=== PATIENT | male | born 1985 | race Caucasian/White ===

== ENCOUNTER 2020-09-14 14:15 | Emergency (ER) | payer BC, OTHER ==
[~2020-09-14] VITALS: Ht 185.5 cm; Wt 174.6 kg
--- NOTE | 2020-09-14 14:22 | ED General ---
General Chief Complaint: Respiratory Problems Stated Complaint: SINUS | DIARRHEA | VOMITING | COUGH | LIGHT-HEADED History of Present Illness Date Seen by Provider: September 14, 2020 Time Seen by Provider: 14:22 Initial Comments Patient presenting to the emergency department for evaluation of multiple symptoms including cough congestion fevers chills nausea vomiting diarrhea and bloody stools. The GI symptoms have been going on for 7 days including the bloody stools and the respiratory symptoms have been going on for 3 days. Patient says that the cough is nonproductive. The fevers is subjective and he has not had a measured fever. The emesis is nonbloody nonbilious. The diarrhea is watery and has been going on for 7 days. He says he has not been on any antibiotics recently and no chemotherapy or travel the blood in his stool is bright red. Patient denies having any medical problems or taking any medications on a regular basis but says that he does not have a primary care provider. He is in no obvious distress with normal vital signs other than hypertension noted. Allergies and Home Medications Allergies Coded Allergies: Fish Containing Products (Verified Allergy, Unknown, 09/14/20) Patient Home Medication List Home Medication List Reviewed: Yes Review of Systems Review of Systems Constitutional: fever EENTM: nose congestion Respiratory: cough Cardiovascular: no symptoms reported Gastrointestinal: diarrhea, nausea, vomiting Genitourinary: no symptoms reported Musculoskeletal: no symptoms reported Skin: no symptoms reported Psychiatric/Neurological: No Symptoms Reported All Other Systems Reviewed Negative Unless Noted: Yes Physical Exam Vital Signs Vital Signs - First Documented 09/14/20 14:18 Temp 36.6 Pulse 89 Resp 18 Pulse Ox 97 O2 Delivery Room Air Capillary Refill : Height, Weight, BMI Height: '" Weight: lbs. oz. kg; BMI Method: General Appearance: No Apparent Distress, WD/WN HEENT: PERRL/EOMI Neck: Supple Respiratory: Lungs Clear, No Respiratory Distress Cardiovascular: Regular Rate, Rhythm Gastrointestinal: Non Tender, Soft Rectal: Hemorrhoids (Approximate 2 x 2 centimeter hemorrhoid noted with no active bleeding noted. Internal exam revealed no internal hemorrhoids masses or bleeding) Back: Normal Inspection Extremity: Normal Capillary Refill Neurologic/Psychiatric: Alert, Oriented x3 Skin: Warm/Dry Progress/Results/Core Measures Suspected Sepsis SIRS Temperature: Pulse: Respiratory Rate: Laboratory Tests 09/14/20 14:55: White Blood Count 6.4 Blood Pressure / Mean: Laboratory Tests 09/14/20 14:55: Creatinine 0.80, INR Comment 0.9, Platelet Count 243, Total Bilirubin 1.0 Results/Orders Lab Results Laboratory Tests Test 09/14/20 14:55 09/14/20 15:10 09/14/20 15:15 Range/Units White Blood Count 6.4 4.3-11.0 10^3/uL Red Blood Count 5.15 4.35-5.85 10^6/uL Hemoglobin 16.1 13.3-17.7 G/DL Hematocrit 45 40-54 % Mean Corpuscular Volume 88 80-99 FL Mean Corpuscular Hemoglobin 31 25-34 PG Mean Corpuscular Hemoglobin Concent 36 32-36 G/DL Red Cell Distribution Width 12.5 10.0-14.5 % Platelet Count 243 130-400 10^3/uL Mean Platelet Volume 9.4 7.4-10.4 FL Immature Granulocyte % (Auto) 0 % Neutrophils (%) (Auto) 69 42-75 % Lymphocytes (%) (Auto) 21 12-44 % Monocytes (%) (Auto) 8 0-12 % Eosinophils (%) (Auto) 2 0-10 % Basophils (%) (Auto) 1 0-10 % Neutrophils # (Auto) 4.4 1.8-7.8 X 10^3 Lymphocytes # (Auto) 1.3 1.0-4.0 X 10^3 Monocytes # (Auto) 0.5 0.0-1.0 X 10^3 Eosinophils # (Auto) 0.1 0.0-0.3 10^3/uL Basophils # (Auto) 0.0 0.0-0.1 10^3/uL Immature Granulocyte # (Auto) 0.0 0.0-0.1 10^3/uL Percent Immature Platelet Fraction 1.7 0.0-7.6 % Prothrombin Time 12.8 12.2-14.7 SEC INR Comment 0.9 0.8-1.4 Activated Partial Thromboplast Time 27 24-35 SEC Sodium Level 134 L 135-145 MMOL/L Potassium Level 3.8 3.6-5.0 MMOL/L Chloride Level 94 L 98-107 MMOL/L Carbon Dioxide Level 26 21-32 MMOL/L Anion Gap 14 5-14 MMOL/L Blood Urea Nitrogen 10 7-18 MG/DL Creatinine 0.80 0.60-1.30 MG/DL Estimat Glomerular Filtration Rate > 60 BUN/Creatinine Ratio 13 Glucose Level 225 H 70-105 MG/DL Calcium Level 9.1 8.5-10.1 MG/DL Corrected Calcium 9.1 8.5-10.1 MG/DL Total Bilirubin 1.0 0.1-1.0 MG/DL Aspartate Amino Transf (AST/SGOT) 51 H 5-34 U/L Alanine Aminotransferase (ALT/SGPT) 67 H 0-55 U/L Alkaline Phosphatase 69 40-136 U/L Total Protein 7.9 6.4-8.2 GM/DL Albumin 4.0 3.2-4.5 GM/DL Lipase 24 8-78 U/L Urine Color YELLOW Urine Clarity SLIGHTLY CLOUDY Urine pH 6.0 5-[address] 1.025 H 1.016-1.022 Urine Protein NEGATIVE NEGATIVE Urine Glucose (UA) 1+ H NEGATIVE Urine Ketones NEGATIVE NEGATIVE Urine Nitrite NEGATIVE NEGATIVE Urine Bilirubin 1+ H NEGATIVE Urine Urobilinogen 1.0 < = 1.0 MG/DL Urine Leukocyte Esterase NEGATIVE NEGATIVE Urine RBC (Auto) NEGATIVE NEGATIVE Urine RBC NONE /HPF Urine WBC 0-2 /HPF Urine Squamous Epithelial Cells 2-5 /HPF Urine Crystals NONE /LPF Urine Bacteria FEW H /HPF Urine Casts NONE /LPF Urine Mucus LARGE H /LPF Urine Culture Indicated YES My Orders Orders - DEENA MANZANO DO Comprehensive Metabolic Panel (09/14/20 14:49) Cbc With Automated Diff (09/14/20 14:49) Lipase (09/14/20 14:49) Chest 1 View Ap/Pa Only (09/14/20 14:49) Ua Culture If Indicated (09/14/20 14:49) Partial Thromboplastin Time (09/14/20 14:49) Protime With Inr (09/14/20 14:49) Iv/Invasive Line Insertion .IV start (09/14/20 14:49) Coronavirus Sars-Cov-2 So 2018 (09/14/20 14:57) Urine Culture (09/14/20 15:10) Vital Signs/I&O 09/14/20 14:18 Temp 36.6 Pulse 89 Resp 18 B/P (MAP) Pulse Ox 97 O2 Delivery Room Air Capillary Refill : Progress Note : Progress Note Patient has negative work-up with no signs of anemia or dehydration. I highly suspect that the bleeding is from the larger external hemorrhoid noted. Chest x-ray shows no abnormality. I did reveal to him that he has transaminitis which would go along with a viral infection and that he also has hyperglycemia and hypertension that these are chronic conditions and that he really needs a primary care provider to further treat these conditions. No acute pathology going on today so I will recommend outpatient hemorrhoid treatment continue drink plenty of fluids and I will prescribe Zofran for support of his nausea and vomiting and Imodium for the diarrhea. Patient aware and agreeable with plan for discharge and verbalized understanding of the need for short-term follow-up and strict ED return precautions discussed clear his neck pain fevers vomiting or other general concerns. Departure Impression Primary Impression: External hemorrhoid Additional Impressions: Transaminitis Hyperglycemia Elevated blood pressure reading without diagnosis of hypertension URI (upper respiratory infection) Nausea & vomiting Diarrhea Disposition: 01 HOME, SELF-CARE Condition: Stable Departure-Patient Inst. Referrals: NO,LOCAL PHYSICIAN (PCP/Family) Primary Care Physician Patient Instructions: Hemorrhoids ED Scripts Hydrocortisone (Anusol-Hc) 30 Gm Cream..g. 30 GM RC BID for 14 Days, TUBE Prov: DEENA MANZANO DO 09/14/20 Ondansetron (Ondansetron Odt) 4 Mg Tab.rapdis 4 MG PO Q6H PRN for NAUSEA/VOMITING-1ST LINE, #14 TAB Prov: DEENA MANZANO DO 09/14/20 DEENA MANZANO DO September 14, 2020 14:22
[2020-09-14 15:01] LABS: BASOPHILS % (AUTO) 1 % (0-10); EOSINOPHILS # (AUTO) 0.1 10^3/uL (0.0-0.3); EOSINOPHILS % (AUTO) 2 % (0-10); HEMATOCRIT 45 % (40-54); HEMOGLOBIN 16.1 G/DL (13.3-17.7); LYMPHOCYTES # (AUTO) 1.3 X 10^3 (1.0-4.0); LYMPHOCYTES % (AUTO) 21 % (12-44); MEAN CORPUSCULAR HEMOGLOBIN 31 PG (25-34); MEAN CORPUSCULAR HGB CONC 36 G/DL (32-36); MEAN CORPUSCULAR VOLUME 88 FL (80-99); MEAN PLATELET VOLUME 9.4 FL (7.4-10.4); MONOCYTES # (AUTO) 0.5 X 10^3 (0.0-1.0); MONOCYTES % (AUTO) 8 % (0-12); NEUTROPHILS # (AUTO) 4.4 X 10^3 (1.8-7.8); NEUTROPHILS % (AUTO) 69 % (42-75); PLATELET COUNT 243 10^3/uL (130-400); WHITE BLOOD COUNT 6.4 10^3/uL (4.3-11.0)
[2020-09-14 15:11] LABS: INR 0.9 (0.8-1.4); PROTHROMBIN TIME PATIENT 12.8 SEC (12.2-14.7)
[2020-09-14 15:15] LABS: ALANINE AMINOTRANSFERASE 67 U/L (0-55); ALKALINE PHOSPHATASE 69 U/L (40-136); BUN/CREATININE RATIO 13; CALCIUM 9.1 MG/DL (8.5-10.1); CARBON DIOXIDE 26 MMOL/L (21-32); CHLORIDE 94 MMOL/L (98-107); GFR ESTIMATED > 60; GLUCOSE 225 MG/DL (70-105); LIPASE 24 U/L (8-78); POTASSIUM 3.8 MMOL/L (3.6-5.0); SODIUM 134 MMOL/L (135-145); TOTAL PROTEIN 7.9 GM/DL (6.4-8.2)
--- NOTE | 2020-09-14 15:26 | Diagnostic Imaging Report ---
INDICATION: Cough. TIME OF EXAM: 3:01 p.m. FINDINGS: The heart size is normal. The pulmonary vascularity is unremarkable. The lungs are clear. No infiltrate, effusion or pneumothorax is detected. IMPRESSION: No acute cardiopulmonary process is detected. Dictated by: Dictated on workstation # [id number]
[2020-09-14 15:32] LABS: CLARITY,URINE SLIGHTLY CLOUDY; COLOR,URINE YELLOW; GLUCOSE, URINE (UA) 1+ (NEGATIVE); KETONES,URINE NEGATIVE (NEGATIVE); NITRITE,URINE NEGATIVE (NEGATIVE); PROTEIN,URINE NEGATIVE (NEGATIVE)
[2020-09-14 15:33] LABS: BACTERIA,URINE FEW /HPF; BILIRUBIN,URINE 1+ (NEGATIVE); LEUKOCYTE ESTERASE ,URINE NEGATIVE (NEGATIVE); WBC,URINE 0-2 /HPF
[2020-09-14] MEDS ORDERED: ONDA4TAB11 PO (16:06)
[2020-09-14] MEDS ORDERED: HYDR30CR71 RC (16:06)
[2020-09-14 16:39] VITALS: BP 180/90
== END 2020-09-14 16:36 | disposition home or self-care (01) ==
LOC: ER FS 14:18
DX: J06.9 Acute upper respiratory infection, unspecified (principal); K64.4 Residual hemorrhoidal skin tags; R74.01 Elevation of levels of liver transaminase levels; R03.0 Elevated blood-pressure reading, without diagnosis of hypertension; R73.9 Hyperglycemia, unspecified; R11.2 Nausea with vomiting, unspecified; R19.7 Diarrhea, unspecified
CPT/HCPCS: 36415; 71045; 80053; 81000; 83690; 85025; 85610; 85730; 87077; 87088; 99284; U0002; 87635